=== PATIENT | male | born 1945 | race Caucasian/White ===

== ENCOUNTER 2020-01-05 06:28 | Outpatient (CLI) | payer MEDICARE, OTHER ==
[2020-01-05 18:10] LABS: #Basophils 0.1 thou/uL (0.0-0.2); #Eosinphils 0.1 thou/uL (0.0-0.7); #Lymphocytes 2.5 thou/uL (1.20-3.40); #Monocytes 0.5 thou/uL (0.11-0.59); #Neutrophils 3.2 thou/uL (1.40-6.50); %Eosinophils 2.3 % (0.0-10.0); %Lymphocytes 39.3 % (21.0-51.0); %Monocytes 7.3 % (0.0-10.0); %Neutrophils 50.2 % (42.0-75.0); Hemoglobin 13.4 g/dL (14.0-18.0); Mean Corpuscular HGB CONC 32.8 g/dL (32.0-36.0); Mean Corpuscular Hemoglobin 31.2 pg (27.0-31.0); Mean Corpuscular Volume 95.1 fL (78.0-98.0); Mean Platelet Volume 8.3 fL (7.4-10.4); Platelet Count 232 thou/uL (130-400); RBC Distribution Width 11.5 % (11.5-14.5); Red Blood Cell (RBC) Count 4.31 mill/uL (4.70-6.10); White Blood Cell (WBC) Count 6.3 thou/uL (4.8-10.8)
[2020-01-05 18:17] LABS: Prothrombin Time 13.4 sec (12.0-14.7)
[2020-01-05 18:28] LABS: Anion Gap 13 mmol/L (10-20); BUN (Urea Nitrogen) 19 mg/dL (8.4-25.7); Calc. Creatinine Clearance 0 mL/min (70-130); Calcium 9.6 mg/dL (7.8-10.44); Carbon Dioxide 22 mmol/L (23-31); Chloride 110 mmol/L (98-107); Estimated GFR-MDRD 77; Glucose 104 mg/dL (83-110); Potassium 3.7 mmol/L (3.5-5.1); Sodium 141 mmol/L (136-145)
[2020-01-05 18:32] LABS: Bacteria/HPF None Seen HPF (None Seen); Bilirubin Negative (Negative); Blood, Urine Negative (Negative); Clarity Clear (Clear); Glucose, Urine (Dipstick) Normal (Negative); Leukocyte Negative Leu/uL (Negative); Mucous/LPF Rare LPF (<2+); Nitrite Negative (Negative); Protein, Urine (Dipstick) Negative (Neg-Trace); Squamous Epithelial None Seen HPF (0-3); WBC/HPF 0-3 HPF (0-3)
[2020-01-06 16:30] LABS: SARS-CoV-2 MS2 Positive; SARS-CoV-2 N Gene Negative; SARS-CoV-2 S Gene Negative; SARS-CoV-2 orf1ab Negative
--- NOTE | 2020-01-07 12:20 | EKG ---
Test Reason : Blood Pressure : / mmHG Vent. Rate : 066 BPM Atrial Rate : 066 BPM P-R Int : 158 ms QRS Dur : 096 ms QT Int : 424 ms P-R-T Axes : 043 -29 036 degrees QTc Int : 444 ms Normal sinus rhythm Minimal voltage criteria for LVH, may be normal variant Borderline ECG When compared with ECG of 28-JAN-2016 12:11, T wave inversion no longer evident in Inferior leads Confirmed by MELODIE RODRIGUEZ, . SKaushik ([id number]) on 01/07/2020 12:19:54 PM Referred By: IERO Confirmed By:DR. Argenis SEWELL MD
== END 2020-01-05 06:29 | disposition home or self-care (01) ==
LOC: LABBT 06:28
PROVIDERS: ATTEND Orthopaedic Surgery
DX: Z01.818 Encounter for other preprocedural examination (principal); Z11.59 Encounter for screening for other viral diseases; M17.12 Unilateral primary osteoarthritis, left knee
CPT/HCPCS: 80048; 81001; 85025; 85610; 87081; 93005; U0003; 87635; 93010

== ENCOUNTER 2020-01-08 05:36 | Inpatient (IN) | payer MEDICARE, OTHER ==
[2020-01-05 15:57] VITALS: BMI 26.0
[2020-01-08] MEDS ORDERED: Tranexamic Acid 1,000 MG/10 ML VIAL ONE ×2 (06:28→09:39)
[2020-01-08] MEDS ORDERED: Sodium Chloride 0.9% 100 ML ONE (06:28)
[2020-01-08] MEDS ORDERED: Vancomycin 1 GM/200 ML BAG ONE (06:28)
[2020-01-08] MEDS ORDERED: Clindamycin/D5W 600 mg/50 ml Premix Bag ONE (06:28)
[2020-01-08] MEDS ORDERED: Fentanyl 100 MCG/2 ML VIAL ONE ×2 (06:32→09:14)
[2020-01-08] MEDS ORDERED: Lidocaine 1% (PF) 30 ML VIAL ONE (06:32)
[2020-01-08] MEDS ORDERED: Midazolam HCl 2 mg/2 ml Vial ONE (06:32)
[2020-01-08] MEDS ORDERED: Bupivacaine PF 0.5% 30 ML VIAL ONE (06:40)
[2020-01-08] MEDS ORDERED: Phenylephrine 10 MG/ML VIAL ONE (07:41)
[2020-01-08] MEDS ORDERED: Albumin 25% 100 ML ONE (07:52)
[2020-01-08] MEDS ORDERED: HYDROcodone/Acetaminophen 10/325 mg Tablet PO PRN (07:59)
[2020-01-08] MEDS ORDERED: Promethazine HCl 25 MG/ML VIAL IM PRN (07:59)
[2020-01-08] MEDS ORDERED: Zolpidem Tartrate 5 MG TAB PO PRN ×2 (07:59→09:32)
[2020-01-08] MEDS ORDERED: Ondansetron PF 4 MG/2 ML Vial IVP PRN ×2 (07:59→09:32)
[2020-01-08] MEDS ORDERED: Acetaminophen 325 MG TAB PO PRN ×2 (07:59→09:32)
[2020-01-08] MEDS ORDERED: Ropivacaine HCl/PF 250 ML in Premix Bag 1 BAG NERVE BLCK SCH (07:59)
[2020-01-08] MEDS ORDERED: Fentanyl 100 MCG/2 ML VIAL IV PRN (08:00)
[2020-01-08] MEDS ORDERED: diphenhydrAMINE 25 MG CAP PO PRN (09:32)
[2020-01-08] MEDS ORDERED: Albuterol Sulfate 2.5 mg/3 ml Neb NEB PRN (09:34)
[2020-01-08] MEDS ORDERED: Tranexamic Acid 1,000 MG in Sodium Chloride 0.9% 100 ML IVPB SCH (09:45)
[2020-01-08] MEDS ORDERED: EPHEDRINE 25 MG/5 ML SYRINGE ONE (10:38)
[2020-01-08] MEDS ORDERED: PHENYLEPHRINE-NS 100 MCG/ML 10 ML SYRINGE ONE (10:38)
[2020-01-08] MEDS ORDERED: Dexamethasone 20 MG/5 ML VIAL ONE (10:38)
[2020-01-08] MEDS ORDERED: Ropivacaine 0.5% HCl/PF (150 MG/30 ML VIAL) ONE (10:38)
[2020-01-08] MEDS ORDERED: PROPOFOL 200 MG/20 ML VIAL ONE (10:38)
[2020-01-08] MEDS ORDERED: Ketorolac Tromethamine 30 MG/ML VIAL ONE (10:38)
[2020-01-08] MEDS ORDERED: Ondansetron PF 4 MG/2 ML Vial ONE (10:38)
[2020-01-08] MEDS ORDERED: Ropivacaine 0.2% HCl/PF (40 MG/20 ML VIAL) ONE (10:38)
[2020-01-08] MEDS ORDERED: Ketorolac Tromethamine 30 MG/ML VIAL IVP SCH (12:00)
[2020-01-08] MEDS: Clindamycin/D5W 900 MG in Premix Bag 1 BAG IVPB SCH ×2 (12:46→18:31)
[2020-01-08] MEDS: Sodium Chloride 0.9% 1,000 ML IV SCH (12:46)
[2020-01-08] MEDS: Ketorolac Tromethamine 30 MG/ML VIAL IVP SCH ×2 (15:58→21:15)
[2020-01-08] MEDS ORDERED: Vancomycin HCl 1.5 GM in Sodium Chloride 0.9% 250 ML 300 ML IVPB SCH (20:00)
[2020-01-08] MEDS ORDERED: Vancomycin 1.5 GRAM/300 ML BAG 1.5 GM in Premix Bag 1 BAG IVPB SCH (20:00)
[2020-01-08] MEDS ORDERED: Dronedarone HCl 400 MG TAB PO SCH (21:00)
[2020-01-08] MEDS ORDERED: Gabapentin 300 MG CAP PO SCH (21:00)
[2020-01-08] MEDS: Aspirin 81 mg Enteric Coated Tablet PO SCH (21:15)
[2020-01-08] MEDS: Atenolol 25 MG TAB PO SCH (21:15)
[2020-01-08] MEDS: Montelukast Sodium 10 mg Tablet PO SCH (21:15)
[2020-01-08] MEDS: Amitriptyline HCl 25 MG TAB PO SCH (21:15)
[2020-01-08] MEDS: Finasteride 5 MG TAB PO SCH (21:15)
[2020-01-08] MEDS: Tamsulosin HCl 0.4 MG CAP PO SCH (21:15)
[2020-01-08] MEDS: Atorvastatin Calcium 10 MG TAB PO SCH (21:16)
[2020-01-08] MEDS: Zonisamide 100 MG CAP PO SCH (21:24)
[2020-01-09] MEDS: Ketorolac Tromethamine 30 MG/ML VIAL IVP SCH ×4 (02:48→20:28)
[2020-01-09] MEDS: HYDROcodone/Acetaminophen 10/325 mg Tablet PO PRN ×2 (04:31→10:39)
[2020-01-09 06:44] LABS: Hemoglobin 11.4 g/dL (14.0-18.0); Mean Corpuscular HGB CONC 32.5 g/dL (32.0-36.0); Mean Corpuscular Hemoglobin 31.2 pg (27.0-31.0); Mean Corpuscular Volume 95.9 fL (78.0-98.0); Mean Platelet Volume 7.8 fL (7.4-10.4); Platelet Count 192 thou/uL (130-400); RBC Distribution Width 11.4 % (11.5-14.5); Red Blood Cell (RBC) Count 3.66 mill/uL (4.70-6.10); White Blood Cell (WBC) Count 11.6 thou/uL (4.8-10.8)
--- NOTE | 2020-01-09 08:28 | PDOC.HOSPP ---
- Subjective Encounter Date: 01/09/20 Subjective: This is a 74-year-old male with history of hypertension, hyperlipidemia, asthma , osteoarthritis, and atrial fibrillation and on anticoagulation who presented to the hospital for total knee replacement. We have been consulted for medical management. Postoperative day 1. The patient is feeling better. He has been complaining of palpitations this morning and his heart rate was reportedly up to 125. - Objective Vital Signs & Weight: Vital Signs (12 hours) Temp Pulse Resp BP BP Pulse Ox 01/09/20 03:23 99.1 F 52 L 16 102/55 L 95 01/08/20 22:56 98.6 F 57 L 16 126/50 L 97 01/08/20 21:15 88 108/68 Weight Weight 159 lb I&O: 01/08/20 01/09/20 01/10/20 06:59 06:59 06:59 Intake Total 360 Balance 360 Result Diagrams: 01/09/20 05:56 Hospitalist ROS - Medication Medications: Active Medications Generic Name Dose Route Start Last Admin Trade Name Freq PRN Reason Stop Dose Admin Hydrocodone Bitart/Acetaminophen 1 tab 01/08/20 07:59 01/09/20 04:31 [place] 10/325 PO 1 tab Q4H PRN Administration Pain (1-3) Amitriptyline HCl 25 mg 01/08/20 21:00 01/08/20 21:15 Elavil PO 25 mg HS DANILO Administration Aspirin 81 mg 01/08/20 21:00 01/08/20 21:15 Ecotrin PO 81 mg BID DANILO Administration Atenolol 25 mg 01/08/20 21:00 01/08/20 21:15 Tenormin PO 25 mg HS DANILO Administration Atorvastatin Calcium 10 mg 01/08/20 21:00 01/08/20 21:16 Lipitor PO 10 mg HS DANILO Administration Dronedarone 400 mg 01/08/20 21:00 01/08/20 21:15 Multaq PO 400 mg HS DANILO Administration Finasteride 5 mg 01/08/20 21:00 01/08/20 21:15 Proscar PO 5 mg HS DANILO Administration Sodium Chloride 1,000 mls @ 100 mls/hr 01/08/20 09:45 01/08/20 12:46 Normal Saline 0.9% IV 1,000 mls .Q10H DANILO Administration Ketorolac Tromethamine 15 mg 01/08/20 15:00 01/09/20 02:48 Toradol IVP 01/10/20 09:01 15 mg 0300,0900,1500,2100 DANILO Administration Montelukast Sodium 10 mg 01/08/20 21:00 01/08/20 21:15 Singulair PO 10 mg HS DANILO Administration Sodium Chloride 10 ml 01/08/20 09:00 01/08/20 21:16 Flush - Normal Saline IVF 10 ml Q12HR DANILO Administration Tamsulosin HCl 0.4 mg 01/08/20 21:00 01/08/20 21:15 Flomax PO 0.4 mg BID DANILO Administration Zonisamide 100 mg 01/08/20 21:00 01/08/20 21:24 Zonisamide PO 100 mg BID DANILO Administration - Exam General Appearance: awake alert ENT: normocephalic atraumatic Heart: irregular Heart - other findings: tachycardia Extremities: no cyanosis, no clubbing Neurological: cranial nerve grossly intact, no focal deficits Hosp A/P (1) Afib Code(s): I48.91 - UNSPECIFIED ATRIAL FIBRILLATION Status: Acute (2) Knee joint replacement status Code(s): Z96.659 - PRESENCE OF UNSPECIFIED ARTIFICIAL KNEE JOINT Status: Acute (3) Asthma Code(s): J45.909 - UNSPECIFIED ASTHMA, UNCOMPLICATED Status: Chronic (4) Dyslipidemia Code(s): E78.5 - HYPERLIPIDEMIA, UNSPECIFIED Status: Chronic (5) HTN (hypertension) Code(s): I10 - ESSENTIAL (PRIMARY) HYPERTENSION Status: Chronic - Plan The patient's pain is controlled. Atrial fibrillation with RVR this morning. Will restart his Multitak 400 mg twice a day and continue his nocturnal atenolol. We will restart Eliquis today. Continue Protonix for peptic ulcer disease prophylaxis. Ipratropium bromide nebulized every 6 hours as needed for shortness of breath or wheezing. Continue PT and OT.
[2020-01-09] MEDS ORDERED: Ipratropium Bromide 2.5 ml Neb NEB PRN (08:42)
--- NOTE | 2020-01-09 08:52 | PRG ---
DATE OF SERVICE: 01/09/2020 SUBJECTIVE: Chase is a 74-year-old male, postop day 1 from left total knee arthroplasty. He has no complaints. He is quite comfortable and his knee is actually feeling better than his preoperative state. OBJECTIVE: VITAL SIGNS: Temperature 99.1, pulse 52, respiratory rate 16 and nonlabored, blood pressure 102/55. GENERAL: He is alert and oriented to person, place, time, situation, responsive, appropriate with examiner, quite happy with his postoperative results. EXTREMITIES: Incision is clean. No strikethrough. No erythema. He is neurovascularly intact in left lower extremity. LABORATORY DATA: Hemoglobin and hematocrit 11.4 and 35.1. IMPRESSION: A 74-year-old male postoperative day 1, left total knee arthroplasty doing exceptionally well. PLAN: Continue current care. Discharge to home tomorrow. Job ID: [id number]
[2020-01-09] MEDS: Aspirin 81 mg Enteric Coated Tablet PO SCH (08:57)
[2020-01-09] MEDS: Zonisamide 100 MG CAP PO SCH ×2 (08:57→20:29)
[2020-01-09] MEDS: Senokot S 8.6-50 MG TAB PO SCH ×2 (08:57→20:29)
[2020-01-09] MEDS: Multivitamin W/ Minerals 1 TAB PO SCH (09:00)
[2020-01-09] MEDS ORDERED: Apixaban 5 MG TAB PO SCH (09:00)
[2020-01-09] MEDS: Tamsulosin HCl 0.4 MG CAP PO SCH ×2 (09:00→20:29)
[2020-01-09] MEDS: Ferrous Gluconate 324 MG TAB PO SCH ×2 (09:00→17:06)
[2020-01-09] MEDS: Dronedarone HCl 400 MG TAB PO SCH ×2 (09:00→20:29)
[2020-01-09] MEDS ORDERED: HYDROcodone/Acetaminophen 10/325 mg Tablet PO SCH (11:15)
[2020-01-09] MEDS: Sodium Chloride 0.9% 1,000 ML IV SCH ×4 (11:42→23:11)
[2020-01-09] MEDS ORDERED: HYDROcodone/Acetaminophen 5/325 mg Tablet PO PRN ×2 (11:51→11:52)
[2020-01-09] MEDS: traMADol HCl 50 MG TAB PO PRN ×2 (13:12→20:30)
[2020-01-09] MEDS: Acetaminophen 325 MG TAB PO SCH ×2 (16:08→20:30)
[2020-01-09] MEDS: Apixaban 5 MG TAB PO SCH (17:05)
[2020-01-09] MEDS: HYDROcodone/Acetaminophen 5/325 mg Tablet PO SCH ×2 (17:34→23:09)
[2020-01-09] MEDS: Atorvastatin Calcium 10 MG TAB PO SCH (20:29)
[2020-01-09] MEDS: Atenolol 25 MG TAB PO SCH (20:29)
[2020-01-09] MEDS: Finasteride 5 MG TAB PO SCH (20:29)
[2020-01-09] MEDS: Amitriptyline HCl 25 MG TAB PO SCH (20:29)
[2020-01-09] MEDS: Montelukast Sodium 10 mg Tablet PO SCH (20:30)
[2020-01-10] MEDS: Ketorolac Tromethamine 30 MG/ML VIAL IVP SCH ×2 (04:24→08:37)
[2020-01-10] MEDS: Acetaminophen 325 MG TAB PO SCH ×2 (04:24→08:37)
[2020-01-10] MEDS: HYDROcodone/Acetaminophen 5/325 mg Tablet PO SCH ×2 (05:04→11:56)
[2020-01-10] MEDS: traMADol HCl 50 MG TAB PO PRN (05:40)
[2020-01-10 05:48] LABS: Mean Corpuscular HGB CONC 32.7 g/dL (32.0-36.0); Mean Corpuscular Hemoglobin 31.3 pg (27.0-31.0); Mean Corpuscular Volume 95.8 fL (78.0-98.0); Mean Platelet Volume 7.8 fL (7.4-10.4); Platelet Count 213 thou/uL (130-400); RBC Distribution Width 11.6 % (11.5-14.5); Red Blood Cell (RBC) Count 4.17 mill/uL (4.70-6.10)
[2020-01-10] MEDS: Dronedarone HCl 400 MG TAB PO SCH ×2 (08:35→20:22)
[2020-01-10] MEDS: Apixaban 5 MG TAB PO SCH ×2 (08:36→16:52)
[2020-01-10] MEDS: Multivitamin W/ Minerals 1 TAB PO SCH (08:36)
[2020-01-10] MEDS: Senokot S 8.6-50 MG TAB PO SCH ×2 (08:36→20:23)
[2020-01-10] MEDS: Ferrous Gluconate 324 MG TAB PO SCH ×2 (08:36→16:52)
[2020-01-10] MEDS: Tamsulosin HCl 0.4 MG CAP PO SCH ×2 (08:36→20:22)
[2020-01-10] MEDS: Zonisamide 100 MG CAP PO SCH ×2 (08:37→20:22)
[2020-01-10] MEDS: Sodium Chloride 0.9% 1,000 ML IV SCH (11:21)
[2020-01-10] MEDS ORDERED: ALPRAZolam 0.25 MG TAB PO SCH (13:00)
[2020-01-10] MEDS: Acetaminophen 500 MG TAB PO PRN (13:22)
--- NOTE | 2020-01-10 18:59 | PDOC.HOSPP ---
- Subjective Encounter Date: 01/10/20 Subjective: Follow-up palpitations. - Objective Vital Signs & Weight: Vital Signs (12 hours) Temp Pulse Resp BP Pulse Ox 01/10/20 15:15 98.5 F 80 18 107/59 L 98 01/10/20 12:33 97 01/10/20 11:13 98.4 F 148 H 14 114/80 95 01/10/20 07:27 98.2 F 141 H 17 120/77 95 Weight Admit Weight 159 lb Weight 159 lb I&O: 01/09/20 01/10/20 01/11/20 06:59 06:59 06:59 Intake Total 360 1670 Balance 360 1670 Result Diagrams: 01/10/20 05:34 Hospitalist ROS - Medication Medications: Active Medications Generic Name Dose Route Start Last Admin Trade Name Freq PRN Reason Stop Dose Admin Acetaminophen 1,000 mg 01/10/20 14:00 01/10/20 13:22 Tylenol PO 1,000 mg Q6H PRN Administration Moderate to Severe Pain (6-10) Amitriptyline HCl 25 mg 01/08/20 21:00 01/09/20 20:29 Elavil PO 25 mg HS DANILO Administration Apixaban 5 mg 01/09/20 17:00 01/10/20 16:52 Eliquis PO 5 mg 0900,1700 DANILO Administration Atenolol 25 mg 01/08/20 21:00 01/09/20 20:29 Tenormin PO 25 mg HS DANILO Administration Atorvastatin Calcium 10 mg 01/08/20 21:00 01/09/20 20:29 Lipitor PO 10 mg HS DANILO Administration Cholecalciferol 5,000 units 01/09/20 09:00 01/10/20 08:36 Vitamin D3 PO 5,000 units DAILY DANILO Administration Dronedarone 400 mg 01/09/20 09:00 01/10/20 08:35 Multaq PO 400 mg BID DANILO Administration Ferrous Gluconate 324 mg 01/09/20 08:00 01/10/20 16:52 Fergon PO 324 mg BID-WM DANILO Administration Finasteride 5 mg 01/08/20 21:00 01/09/20 20:29 Proscar PO 5 mg HS DANILO Administration Iron/Minerals/Multivitamins 1 tab 01/09/20 09:00 01/10/20 08:36 Theragran M PO 1 tab DAILY DANILO Administration Montelukast Sodium 10 mg 01/08/20 21:00 01/09/20 20:30 Singulair PO 10 mg HS DANILO Administration Pantoprazole Sodium 40 mg 01/09/20 09:00 01/10/20 08:36 Protonix PO 40 mg DAILY DANILO Administration Senna/Docusate Sodium 2 tab 01/09/20 09:00 01/10/20 08:36 Senokot S PO 2 tab BID DANILO Administration Sodium Chloride 10 ml 01/08/20 09:00 01/10/20 08:37 Flush - Normal Saline IVF 10 ml Q12HR DANILO Administration Tamsulosin HCl 0.4 mg 01/08/20 21:00 01/10/20 08:36 Flomax PO 0.4 mg BID DANILO Administration Zonisamide 100 mg 01/08/20 21:00 01/10/20 08:37 Zonisamide PO 100 mg BID DANILO Administration - Exam General Appearance: awake alert ENT: normocephalic atraumatic Neck: supple Respiratory: normal chest expansion, no tachypnea Extremities: no cyanosis Neurological: cranial nerve grossly intact, no focal deficits Hosp A/P (1) Afib Code(s): I48.91 - UNSPECIFIED ATRIAL FIBRILLATION Status: Acute (2) Knee joint replacement status Code(s): Z96.659 - PRESENCE OF UNSPECIFIED ARTIFICIAL KNEE JOINT Status: Acute (3) Asthma Code(s): J45.909 - UNSPECIFIED ASTHMA, UNCOMPLICATED Status: Chronic (4) Dyslipidemia Code(s): E78.5 - HYPERLIPIDEMIA, UNSPECIFIED Status: Chronic (5) HTN (hypertension) Code(s): I10 - ESSENTIAL (PRIMARY) HYPERTENSION Status: Chronic - Plan 01/08: The patient's pain is controlled. Atrial fibrillation with RVR this morning. Will restart his Multitak 400 mg twice a day and continue his nocturnal atenolol. We will restart Eliquis today. Continue Protonix for peptic ulcer disease prophylaxis. Ipratropium bromide nebulized every 6 hours as needed for shortness of breath or wheezing. Continue PT and OT. 01/09: The patient was tachycardic this morning. EKG revealed atrial flutter with rapid ventricular response. Transferred to telemetry. His safety and security manager was consulted. Continue Multitak, Eliquis and atenolol.
[2020-01-10] MEDS: Atorvastatin Calcium 10 MG TAB PO SCH (20:22)
[2020-01-10] MEDS: Atenolol 25 MG TAB PO SCH (20:22)
[2020-01-10] MEDS: Finasteride 5 MG TAB PO SCH (20:23)
[2020-01-10] MEDS: Amitriptyline HCl 25 MG TAB PO SCH (20:23)
[2020-01-10] MEDS: Montelukast Sodium 10 mg Tablet PO SCH (20:23)
--- NOTE | 2020-01-10 22:13 | EKG ---
Test Reason : Blood Pressure : / mmHG Vent. Rate : 145 BPM Atrial Rate : 290 BPM P-R Int : 000 ms QRS Dur : 100 ms QT Int : 260 ms P-R-T Axes : 114 -36 010 degrees QTc Int : 403 ms Atrial flutter with 2:1 A-V conduction Left axis deviation Pulmonary disease pattern Minimal voltage criteria for LVH, may be normal variant Inferior infarct , possibly acute T wave abnormality, consider anterior ischemia * ACUTE [place] * Consider right ventricular involvement in acute inferior infarct Abnormal ECG When compared with ECG of 05-JAN-2020 16:50, Significant changes have occurred Confirmed by El MUSA ([id number]) on 01/10/2020 10:13:18 PM Referred By: TOMMY Confirmed By:El MUSA
[2020-01-11] MEDS: Acetaminophen 500 MG TAB PO PRN ×3 (00:14→12:26)
--- NOTE | 2020-01-11 01:29 | CON ---
DATE OF CONSULTATION: HISTORY: Chase Elias is a 74-year-old white male, patient of Dr. Wilkinson. He had previously undergone evaluation with echocardiogram in December 2018, which revealed ejection fraction of 55% to 60% and [id number] mitral regurgitation, moderate aortic regurgitation, severe calcification of the aortic valve, mild aortic stenosis, and mild tricuspid regurgitation. He, also in November 2018, underwent cardiac PET, which was felt to probably be normal. He was seen again on September 14, 2019. He had been having problems with increased asthma and was using his rescue inhaler very frequently and was found by his primary doctor to be in atrial fibrillation. He was placed on Multaq 400 mg b.i.d. and atenolol was reduced to one-half of the 25 mg tablet daily. He had previously been placed on Eliquis 5 mg b.i.d. by his primary doctor. He returned for followup on September 22, 2019 and had returned to sinus rhythm. He states that since that time every few days, he would continue to have a rapid heartbeat at home, although it only last about 2 hours. This seem to be more prevalent if he would take higher dose narcotics for pain with his left knee. Two days ago, he underwent left total knee replacement. Apparently, he was not given Multaq. He then noticed that his heart was beating rapidly. An EKG showed atrial flutter with 2:1 block with a heart rate of 145 per minute. He was restarted on his Multaq yesterday morning at 9 and also Eliquis was restarted yesterday at 5 p.m. He has just been transferred to telemetry and has converted to sinus rhythm. PAST MEDICAL HISTORY: Recent diagnosis of atrial fibrillation, asthma, GERD, diabetes, hypercholesterolemia, hypertension, mild aortic stenosis, benign prostatic hypertrophy, osteoarthritis. MEDICATIONS: 1. Eliquis 5 mg b.i.d. 2. Multaq 400 mg b.i.d. 3. Albuterol p.r.n. 4. Amitriptyline 25 mg at bedtime. 5. Atenolol 25 mg at bedtime. 6. Celebrex 200 mg b.i.d. 7. Proscar 5 mg at bedtime. 8. Fish oil 1000 mg at bedtime. 9. Flovent b.i.d. 10. Omeprazole 20 mg daily. 11. Simvastatin 20 at bedtime. 12. Flomax 0.4 b.i.d. 13. Tramadol p.r.n. ALLERGIES: PENICILLIN. OPERATIONS: Appendectomy, tonsillectomy, left total knee replacement, nasal septal repair, lumbar fusion, bilateral rotator cuff repair. SOCIAL HISTORY: He does not smoke or drink. REVIEW OF SYSTEMS: 10-point review of systems is otherwise unremarkable. PHYSICAL EXAMINATION: VITAL SIGNS: 107/59, pulse of 80. HEENT: PERRL. NECK: Supple. CHEST: Clear. CARDIAC: S1 and S2 normal without any S3, S4, or murmurs. ABDOMEN: Normal bowel sounds without tenderness or organomegaly. EXTREMITIES: Revealed 1+ edema of the left leg. NEUROLOGIC: Grossly intact. SKIN: Warm and dry. LABORATORY DATA: EKG revealed atrial flutter with 2:1 block, left axis deviation, minimal voltage for LVH, nonspecific T-wave changes. Hemoglobin 13.0, hematocrit 39.9, white count 12,000, platelets 213,000. Sodium 141, potassium 3.7, chloride 110, carbon dioxide 22, BUN 19, creatinine 0.95. COVID negative. IMPRESSION: 1. Atrial flutter with heart rates in 140s, which is converted back to sinus rhythm. This may have been exacerbated by his postoperative state and it sounds as if he did not receive Multaq the day of surgery on January 07. Also he states, at home he has intermittent episodes of very rapid heartbeat which would last approximately 2 hours and he certainly may be having episodic atrial flutter at home. 2. Atrial fibrillation in August 2019 which converted as an outpatient with p.o. Multaq. 3. Moderate aortic insufficiency, mild aortic stenosis. 4. Hypertension. 5. Hyperlipidemia. PLAN: The patient's antiarrhythmic has been never resumed. At home, he continues to have breakthrough episodes lasting up to 2 hours. He certainly may be having episodic flutter at home. I will ask Electrophysiology to see him in consideration of an ablation of his flutter in the future. Dr. Wilkinson will assume his care in the morning. Job ID: [id number] [facility]
[2020-01-11 04:13] LABS: Mean Corpuscular HGB CONC 33.2 g/dL (32.0-36.0); Mean Corpuscular Hemoglobin 31.4 pg (27.0-31.0); Mean Corpuscular Volume 94.6 fL (78.0-98.0); Mean Platelet Volume 7.9 fL (7.4-10.4); Platelet Count 217 thou/uL (130-400); RBC Distribution Width 11.4 % (11.5-14.5); Red Blood Cell (RBC) Count 3.81 mill/uL (4.70-6.10); White Blood Cell (WBC) Count 9.3 thou/uL (4.8-10.8)
[2020-01-11] MEDS ORDERED: Furosemide 20 MG/2 ML VIAL SLOW IVP SCH (08:15)
[2020-01-11] MEDS ORDERED: Furosemide 40 MG/4 ML VIAL IVP SCH (08:15)
--- NOTE | 2020-01-11 08:35 | PRG ---
DATE OF SERVICE: 01/11/2020 SUBJECTIVE: Mr. Elias is doing better. He is converted back to sinus rhythm. He did have atrial flutter briefly. He has a previous history of paroxysmal atrial fibrillation. He has been on Eliquis at home. He was last seen in my office on 09/22/2019. OBJECTIVE: VITAL SIGNS: Blood pressure 129/58, pulse 69, temperature 98.5. GENERAL: Patient is a pleasant male, who is in no acute distress. The patient appears their stated age. NEUROLOGIC: The patient is alert and oriented x3 with no focal neurologic deficits. HEENT: Sclerae without icterus. Mouth has moist mucous membranes with normal pallor. NECK: No JVD. Carotid upstroke brisk. No bruits bilaterally. LUNGS: Clear to auscultation with unlabored respirations. BACK: No scoliosis or kyphosis. CARDIAC: Regular rate and rhythm with normal S1 and S2. No S3 or S4 noted. No significant rubs, murmurs, thrills, or gallops noted throughout the precordium. PMI is not displaced. There is no parasternal heave. ABDOMEN: Soft, nontender, nondistended. No peritoneal signs present. No hepatosplenomegaly. No abnormal striae. EXTREMITIES: 2+ femoral and 2+ dorsalis pedis pulses. No cyanosis, clubbing, or edema. SKIN: No gross abnormalities. PERTINENT LABORATORY DATA: Hemoglobin 12.0. Creatinine 0.98. IMPRESSION: 1. Atrial flutter/ . 2. Recent knee surgery. 3. Shortness of breath. RECOMMENDATIONS: I have asked Mr. Elias to get up and move around. He was restarted Eliquis yesterday. I would recommend repeating echo. He may benefit from one dose of low-dose IV Lasix. At this point, the patient does have paroxysmal atrial fibrillation/flutter. He may benefit from ablation. We will recommend this done as an outpatient. EP has been consulted. From my standpoint, as long as he remains in sinus rhythm and his shortness of breath improves, it would be okay for discharge to home with outpatient followup. Job ID: [id number]
[2020-01-11] MEDS: Ferrous Gluconate 324 MG TAB PO SCH (08:55)
[2020-01-11] MEDS: Multivitamin W/ Minerals 1 TAB PO SCH (08:55)
[2020-01-11] MEDS: Tamsulosin HCl 0.4 MG CAP PO SCH (08:55)
[2020-01-11] MEDS: Apixaban 5 MG TAB PO SCH (08:55)
[2020-01-11] MEDS: Zonisamide 100 MG CAP PO SCH (08:55)
[2020-01-11] MEDS: Dronedarone HCl 400 MG TAB PO SCH (08:56)
[2020-01-11] MEDS: Senokot S 8.6-50 MG TAB PO SCH (08:58)
[2020-01-11 11:47] VITALS: TEMP 97.8
[2020-01-11 12:06] VITALS: BP 99/62
--- NOTE | 2020-01-11 15:26 | PDOC.EP ---
- Subjective Date: 01/11/20 Time: 08:00 Interval History: Follow-up for arrhythmia management. patient has no cardiac concerns or complaints today and has remained in sinus rhythm since converting at 1:30 p.m. on 01/10/2020. he continues to recover from his recent knee replacement. - Review of Systems Constitutional: denies: chills, fever, malaise, weakness Respiratory: denies: cough, pleuritic pain, shortness of breath, wheezing Cardiology: denies: chest pain, edema, heart racing, light headedness, palpitations, passing out Gastrointestinal: denies: abdominal pain, constipation, diarrhea Musculoskeletal: reports: unstable gait, leg pain. denies: falls, neck pain - Objective Allergies/Adverse Reactions: Allergies Allergy/AdvReac Type Severity Reaction Status Date / Time Penicillins Allergy Verified 01/08/20 11:24 Current Medications Acetaminophen (Tylenol) 1,000 mg PO Q6H PRN PRN Reason: Moderate to Severe Pain (6-10) Last Admin: 01/11/20 12:26 Dose: 1,000 mg Albuterol Sulfate (Ventolin) 2.5 mg NEB Q6H PRN PRN Reason: SOB &/or Wheezing Amitriptyline HCl (Elavil) 25 mg PO [facility] Last Admin: 01/10/20 20:23 Dose: 25 mg Apixaban (Eliquis) 5 mg PO 0900,1700 [facility] Last Admin: 01/11/20 08:55 Dose: 5 mg Atenolol (Tenormin) 25 mg PO [facility] Last Admin: 01/10/20 20:22 Dose: 25 mg Atorvastatin Calcium (Lipitor) 10 mg PO [facility] Last Admin: 01/10/20 20:22 Dose: 10 mg Cholecalciferol (Vitamin D3) 5,000 units PO DAILY [facility] Last Admin: 01/11/20 08:54 Dose: 5,000 units Diphenhydramine HCl (Benadryl) 25 mg PO Q6H PRN PRN Reason: Itching Dronedarone (Multaq) 400 mg PO BID [facility] Last Admin: 01/11/20 08:56 Dose: 400 mg Fentanyl (Sublimaze) 50 mcg IV Q1H PRN PRN Reason: BREAKTHROUGH PAIN Ferrous Gluconate (Fergon) 324 mg PO BID-[facility] Last Admin: 01/11/20 08:55 Dose: 324 mg Finasteride (Proscar) 5 mg PO HS [facility] Last Admin: 01/10/20 20:23 Dose: 5 mg Ipratropium [place] (Atrovent) 2.5 ml NEB [id number] PRN PRN Reason: SOB &/or Wheezing Iron/Minerals/Multivitamins (Theragran M) 1 tab PO DAILY [facility] Last Admin: 01/11/20 08:55 Dose: 1 tab Montelukast Sodium (Singulair) 10 mg PO HS [facility] Last Admin: 01/10/20 20:23 Dose: 10 mg Ondansetron HCl (Zofran) 4 mg IVP Q6H PRN PRN Reason: Nausea/Vomiting Pantoprazole Sodium (Protonix) 40 mg PO DAILY [facility] Last Admin: 01/11/20 08:55 Dose: 40 mg Promethazine HCl (Phenergan) 12.5 mg IM Q4H PRN PRN Reason: Nausea Senna/Docusate Sodium (Senokot S) 2 tab PO BID [facility] Last Admin: 01/11/20 08:58 Dose: Not Given Sodium Chloride (Flush - Normal Saline) 10 ml IVF Q12HR [facility] Last Admin: 01/11/20 08:56 Dose: 10 ml Sodium Chloride (Flush - Normal Saline) 10 ml IVF PRN PRN PRN Reason: Saline Flush Tamsulosin HCl (Flomax) 0.4 mg PO BID [facility] Last Admin: 01/11/20 08:55 Dose: 0.4 mg Zolpidem Tartrate (Ambien) 5 mg PO HSPRN PRN PRN Reason: Insomnia Last Admin: 01/10/20 20:21 Dose: 5 mg Zonisamide (Zonisamide) 100 mg PO BID [facility] Last Admin: 01/11/20 08:55 Dose: 100 mg Vital Signs & Weight: Vital Signs Temp Pulse Pulse Pulse Resp BP BP 01/11/20 11:46 97.8 F 75 25 H 01/11/20 10:20 80 75 99/62 123/61 01/11/20 08:51 98.1 F 68 18 01/11/20 03:28 98.5 F 69 18 BP Pulse Ox 01/11/20 11:46 123/61 96 01/11/20 10:20 01/11/20 08:51 122/57 L 94 L 01/11/20 03:28 129/58 L 96 Admit Weight 159 lb Weight 159 lb I/O: I/O 01/10/20 01/11/20 01/12/20 06:59 06:59 06:59 Intake Total 1670 1560 Balance 1670 1560 - Quality Measures Condition: Atrial Fibrillation/Flutter (hx or current) CV meds: Eliquis: Yes - Physical Exam General: alert & oriented x3, appears well, no apparent distress, speech clear, affect appropriate HEENT: mucus membranes moist, normocephaly Neck: supple neck, midline trachea, no JVD/HJR, no masses, no bruit, no lymphadenopathy, no thromegaly Cardiology: regular rate and rhythm, no murmur, regular rate, regular rhythm, PMI nondisplaced Lungs: clear to auscultation, normal breath sounds, normal exam, no wheeze, rales, rhonchi, no wheezes, no rales, no rhonchi Neurology: cranial nerve 2-12 intact, grossly intact, motor function intact, sensory function intact, negative rhomberg, coordination normal, no lateralizing findings - Labs Result Diagrams: 01/11/20 03:50 - EKG Interpretation EKG Method: Telemetry EKG shows: Sinus rhythm - Assessment/Plan Assessment/Plan: 1. Atrial arrhythmias - OAC on eliquis - Symptomatic with associated SOB 2. R TKR Recent interruption in Multaq resulting in recurrent atrial arrhythmias. Typical atrial flutter seen and has a history of atrial fibrillation as well. Multaq has been resumed and patient converted back to sinus rhythm on 01/09 at 1 :30 p.m.. continue Multaq and anticoagulation as he recovers from his recent orthopedic procedure. Plan for ablation after he has recovered. will see him back in 6 weeks or sooner symptoms dictate
--- NOTE | 2020-01-11 20:59 | DIS ---
DATE OF ADMISSION: 01/10/2020 DATE OF DISCHARGE: 01/11/2020 DISCHARGE DIAGNOSES: 1. Postoperative atrial flutter with rapid ventricular response alternating with atrial fibrillation. 2. Status post knee replacement. 3. Asthma. 4. Dyslipidemia. 5. Hypertension. DISCHARGE MEDICATIONS: 1. Albuterol HFA two puffs inhaled q.6 hours as needed for shortness of breath or wheezing. 2. Amitriptyline 25 mg orally nightly. 3. Eliquis 5 mg orally twice daily. 4. Atenolol 25 mg orally nightly. 5. Vitamin D3 of 5000 units orally daily. 6. Multaq one tablet 500 mg orally twice daily. 7. Finasteride 5 mg orally nightly. 8. Montelukast 10 mg orally nightly. 9. Omeprazole 20 mg orally daily. 10. Simvastatin 20 mg orally nightly. 11. Tamsulosin 0.4 mg orally twice daily. 12. Zonisamide 100 mg orally twice daily. 13. Celebrex 200 mg orally twice daily. 14. Pramipexole 1 mg orally daily. 15. Tramadol 50 mg orally q.6 hours as needed for pain. 16. Fish oil one tablet 1000 mg orally nightly. HISTORY OF PRESENT ILLNESS AND HOSPITAL COURSE: This patient was initially admitted by Orthopedic Service for a knee replacement. We were consulted for medical management of his blood pressure and atrial fibrillation. Postoperatively, the patient developed atrial fibrillation with rapid ventricular response alternating with atrial flutter. This was likely exacerbated by his pain. The patient was started on Eliquis and his evening dose of atenolol. Cardiology Service consulted and they recommended continuing medical therapy with outpatient followup in 1 to 2 weeks for consideration of ablation. The patient converted spontaneously to sinus rhythm prior to discharge. Job ID: [id number] [facility]
--- NOTE | 2020-01-12 00:34 | CON ---
DATE OF CONSULTATION: 01/10/2020 HISTORY OF PRESENT ILLNESS: I am seeing Mr. 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 His problems are; 1. Paroxysmal atrial fibrillation, appears to be typical isthmus dependent, now in sinus rhythm, on continued Multaq therapy. 2. Prior history of atrial fibrillation, on Multaq and Eliquis therapy. 3. Status post left knee replacement on January 08, 2020, with transient interruption of the Multaq during this procedure and subsequent day. 4. [id number]-[id number] MR, normal LVEF by 2D echocardiogram. ALLERGIES: PENICILLINS. MEDICATIONS: At home included fish oil supplements, coconut oil, lactobacillus, cholecalciferol, albuterol, simvastatin, celecoxib, atenolol, finasteride, tamsulosin, half turmeric, omeprazole, dronedarone, Multaq 400 mg twice a day, apixaban 5 mg twice a day, zonisamide, montelukast, amitriptyline, pramipexole, fluticasone, and tramadol. SUBJECTIVE: Mr. Elias is here due to recurrent palpitations. He has been experiencing these sensations for last 2 days. He just underwent left total knee replacement on the and he was not given his usual Multaq medication. EKG in the ER showed typical appearing atrial flutter with 2:1 conduction to the ventricle. Ventricular rates were up to 145 beats per minute. Multaq was restarted yesterday morning and Eliquis was also yesterday. He was transferred to telemetry and he converted back to sinus rhythm while there. Since then, he is doing well. He denies angina, CHF, dizziness, or loss of consciousness. No PND or orthopnea noted. No fever, chills, or cough. No discomforts. No bleeding issues. Rest of 12-point review of system otherwise unremarkable. PAST MEDICAL HISTORY: As above. PAST SURGICAL HISTORY: Significant for appendectomy, tonsillectomy, left knee replacement, nasal septal repair, lumbar fusion, and bilateral rotator cuff repair. SOCIAL HISTORY: The patient denies smoking, EtOH, or drug abuse. He is a retired nurse. FAMILY HISTORY: Not contributory. OBJECTIVE DATA: VITAL SIGNS: Temperature 99.1 degrees Fahrenheit, heart rate 70, respiratory rate 16, and blood pressure 116/66. GENERAL: This is an alert and oriented man, in no apparent distress. NECK: Supple. Jugular veins not distended. CHEST: Coarse without crackles. HEART: Sounds are regular to rate and rhythm. No murmur or gallop. ABDOMEN: Benign. Bowel sounds positive. EXTREMITIES: Lower extremities without edema, clubbing, or cyanosis. Pulses are adequate. NEUROLOGIC: The patient is nonfocal. MUSCULOSKELETAL: Without joint swelling or deformity. SKIN: Without rash. DATABASE: EKG reviewed reveals initially atrial flutter, which appears to be typical isthmus dependent in morphology. There is 2:1 AV conduction seen and the subsequent EKG reveals sinus rhythm with rate of 66 beats per minute. The QRS 96 milliseconds and QTc [address]-T changes. LABORATORY DATA: White cell count is 9.3, hemoglobin 12.0, and platelet count is 217. Sodium on 15 was 141, potassium 3.7, BUN is 19, and creatinine 0.95. 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 He is in the past suppressed with Multaq. He has occasional recurrence, but more recently while holding Multaq, he had significant recurrence of atrial arrhythmia in this case, though it appears to be typical isthmus dependent atrial flutter. I discussed the mechanism of both atrial flutter and fibrillation with him. We discussed treatment options and I think this is the one chance that now resuming Multaq will at least hold him down for the immediate future in sinus rhythm. Should the atrial fibrillation or flutter frequently appear, additional AV sidney blocking agents could be considered like increasing atenolol or even adding digoxin. Monitor for bradyarrhythmias. Long-term, though he may benefit from left and right atrial ablation for both atrial fibrillation and flutter. For now, although in view of the recent knee surgery, I would have him recover fully before we consider that. Alternatively, adding amiodarone instead of Multaq could be considered in the interim. We discussed these options. For now, he is to continue Multaq and consider the ablation at a future visit. I will arrange that in 4 to 6 weeks. Thank you again for allowing me to participate in the care of this patient. Job ID: [id number]
--- NOTE | 2020-01-12 12:51 | OP ---
DATE OF PROCEDURE: 01/08/2020 PREOPERATIVE DIAGNOSIS: Left knee osteoarthrosis. POSTOPERATIVE DIAGNOSIS: Left knee osteoarthrosis. PROCEDURE PERFORMED: Left total knee replacement using Bloompop pinless navigation. MANAGER SHOP: Jareth Espinosa PA-C ANESTHESIA: The patient had general anesthetic as well as preoperative blocks. COMPLICATIONS: None. BLOOD LOSS: Minimal. IMPLANTS: To the left knee using Bloompop Triathlon total knee system and the implants of the left knee, we used a size 5 cruciate retaining femur. We used a size 5 tibial base plate. We used a 5 x 11 mm CS X3 poly for the tibial insert and we used an A32 X3 patella. DISPOSITION: He did go to recovery room in stable condition. INDICATIONS: This is a 74-year-old male presenting after years of pain for a left knee replacement. In the past, he has had a right knee replacement and done very well with this. PROCEDURE IN DETAIL: After all appropriate consent forms were explained and signed, the patient was taken back to the operating room and at this time was given general anesthetic. Once the level of anesthesia was appropriate, a well-padded tourniquet was placed on the left leg, and the leg was then prepped and draped in standard surgical fashion. The limb was exsanguinated and tourniquet taken up to 300 mmHg. Midline incision was made with a 10 blade down through the skin and subcutaneous tissue. Bovie electrocautery was used to coagulate any brisk venous bleeding. A new blade was used to make a medial parapatellar arthrotomy. Small subperiosteal release was performed medially and excess fat pad was removed. The knee was flexed up to gain access to the femur. The femur was navigated and distal femoral resection was made. Epicondylar access was used to align our sizing jig and this was pinned in place. We sized our femur to be a size 5 cruciate retaining femur. 4:1 cutting block was applied and pinned. Anterior and posterior chamfer cuts were then made. We navigated out our proximal tibia and made our proximal tibial resection. Spreaders were used to remove any posterior osteophytes off the back of the femur as well as remaining meniscal tissue. A long alignment oly was then used to achieve correct rotation of our tibial baseplate and a size 5 tibial base plate was chosen. This was pinned in place. We trialed the polyethylene and a 5 x 11 mm CS X3 polyethylene gave us full extension and good stability throughout range of motion. Two towel clips and a saw were used to cut our patella. Three lug nuts were drilled and A32 X3 patella was trialed which sat nicely in the trochlear groove. We then drilled our femur and punched our tibia. All components were removed. The knee was thoroughly irrigated and dried. Cement was mixed into the cement gun on the back table. Components were then placed. The knee was held out in full extension until the cement had dried. All excess bone cement was removed. Multiple #2 Vicryl stitches as well as a Quill were used to close our extensor mechanism. 0 Quill followed by a running Monoderm was then used to close the skin. Surgicel glue was then used on the skin. Once this had dried, soft tissue dressing was applied to the limb, tourniquet was let down, and the toes pinked up nicely. The patient was then awakened and taken to the recovery room in stable condition. All counts were correct at the end of the case. The patient did receive preoperative IV antibiotics. The patient was injected with Marcaine for postoperative pain relief. Job ID: [id number]
== END 2020-01-11 16:38 | disposition home or self-care (01) | DRG 470 ==
LOC: SDC 05:36 → SURG A 11:01 → 2NO 01-10 11:10 → SDC 01-10 12:38
PROVIDERS: ADMIT Orthopaedic Surgery; ATTEND Orthopaedic Surgery
PROC: 0SRD0J9 Replacement of Left Knee Joint with Synthetic Substitute, Cemented, Open Approach (ICD-10-PCS; principal; 2020-01-08)
DX: M17.12 Unilateral primary osteoarthritis, left knee (principal); I48.3 Typical atrial flutter; I10 Essential (primary) hypertension; E78.5 Hyperlipidemia, unspecified; I48.0 Paroxysmal atrial fibrillation; J45.909 Unspecified asthma, uncomplicated; E78.00 Pure hypercholesterolemia, unspecified; N40.0 Benign prostatic hyperplasia without lower urinary tract symptoms; Z88.0 Allergy status to penicillin; Z79.01 Long term (current) use of anticoagulants; Z79.899 Other long term (current) drug therapy; Z79.51 Long term (current) use of inhaled steroids; Z90.49 Acquired absence of other specified parts of digestive tract
CPT/HCPCS: 36415; 85027; 93005; 93010; 93306; C1713; C1776; J1100; J1885; J1940; J2001; J2250; J2370; J2405; J2704; J2795; J3010; J3370; J3490; P9047; S0020

== ENCOUNTER 2022-09-16 09:11 | Outpatient (CLI) | payer MEDICARE, OTHER ==
[2022-09-16 10:29] LABS: #Eosinphils 0.2 10x3/uL (0.0-0.5); #Monocytes 0.6 10x3/uL (0.0-1.1); #Neutrophils 4.8 10x3/uL (1.5-8.4); %Basophils 0.5 % (0.0-2.0); %Eosinophils 2.1 % (0.0-6.0); %Lymphocytes 28.7 % (18.0-47.0); %Monocytes 7.6 % (0.0-10.0); %Neutrophils 60.8 % (40.0-75.0); Hemoglobin 12.6 g/dL (13.5-17.5); Mean Corpuscular HGB CONC 34.3 g/dL (32.0-36.0); Mean Corpuscular Hemoglobin 32.6 pg (27.0-33.0); Mean Corpuscular Volume 94.8 fl (81.2-95.1); Mean Platelet Volume 9.6 fl (7.4-10.4); Platelet Count 252 10x3/uL (150-450); Red Blood Cell (RBC) Count 3.87 10x6/uL (4.32-5.72); White Blood Cell (WBC) Count 7.9 10x3/uL (3.5-10.5)
[2022-09-16 10:45] LABS: Anion Gap 12 mmol/L (10-20); BUN (Urea Nitrogen) 26 mg/dL (8.4-25.7); Calc. Creatinine Clearance 0 mL/min (70-130); Calcium 9.9 mg/dL (7.8-10.44); Carbon Dioxide 23 mmol/L (23-31); Chloride 109 mmol/L (98-107); Estimated GFR 75; Glucose 115 mg/dL (83-110); Potassium 3.8 mmol/L (3.5-5.1); Sodium 140 mmol/L (136-145)
== END 2022-09-16 09:12 | disposition home or self-care (01) ==
LOC: LABBT 09:11
PROVIDERS: ATTEND Orthopaedic Surgery
DX: Z01.818 Encounter for other preprocedural examination (principal); M25.511 Pain in right shoulder
CPT/HCPCS: 80048; 85025; 93005; 93010

== ENCOUNTER 2022-09-17 05:52 | Observation (INO) | payer MEDICARE, OTHER ==
[2022-09-17] MEDS ORDERED: Ropivacaine 0.2% HCl/PF 0 ML ONE (06:36)
[2022-09-17] MEDS ORDERED: Ropivacaine 0.5% HCl/PF (150 MG/30 ML VIAL) ONE (06:36)
[2022-09-17] MEDS ORDERED: CEFAZOLIN 2 GM VIAL ONE (06:38)
[2022-09-17] MEDS ORDERED: Tranexamic Acid 1,000 MG/10 ML VIAL ONE (06:38)
[2022-09-17] MEDS ORDERED: Vancomycin 1 GM/200 ML (FROZEN) BAG ONE (06:38)
[2022-09-17] MEDS ORDERED: Sodium Chloride 0.9% 100 ML ONE ×2 (06:38→06:42)
[2022-09-17] MEDS ORDERED: Lidocaine 1% MPF 2 ML VIAL ONE (06:39)
[2022-09-17] MEDS ORDERED: Midazolam HCl 2 mg/2 ml Vial ONE (07:09)
[2022-09-17] MEDS ORDERED: HYDROcodone/Acetaminophen 10/325 mg Tablet PO PRN ×3 (07:28→10:00)
[2022-09-17] MEDS ORDERED: Ipratropium/Albuterol 3 ML NEB NEB PRN (07:30)
[2022-09-17] MEDS ORDERED: Albuterol 200 PUFF (6.7GM INHALER) INH PRN (07:30)
[2022-09-17] MEDS ORDERED: PHENYLEPHRINE-NS 100 MCG/ML 10 ML SYRINGE ONE (07:51)
[2022-09-17] MEDS ORDERED: Ondansetron PF 4 MG/2 ML Vial ONE (07:51)
[2022-09-17] MEDS ORDERED: Glycopyrrolate 0.2 MG/ML 5 ML SYRINGE ONE (07:51)
[2022-09-17] MEDS ORDERED: ePHEDrine 50 MG/ML VIAL ONE (07:51)
[2022-09-17] MEDS ORDERED: Lidocaine 1% PF 5 ML VIAL ONE (07:51)
[2022-09-17] MEDS ORDERED: PROPOFOL 200 MG/20 ML VIAL ONE (07:51)
[2022-09-17] MEDS ORDERED: Rocuronium Bromide 10 MG/ML (10ML VIAL) ONE (07:51)
[2022-09-17 08:06] LABS: SARS-CoV-2 NAA Rapid Test Not Detected (NotDetected)
[2022-09-17] MEDS ORDERED: Non-Formulary Item 1 EACH (Finasteride [Finasteride] 1 MG Tablet) PO SCH (09:00)
[2022-09-17] MEDS ORDERED: [UNRECOGNIZED DRUG - OTHER] INH SCH (09:00)
[2022-09-17] MEDS ORDERED: Losartan 25 MG TAB PO SCH (09:00)
[2022-09-17] MEDS ORDERED: SALMETEROL INH SCH (09:00)
[2022-09-17] MEDS ORDERED: Hydrochlorothiazide 25 MG TAB PO SCH (09:00)
[2022-09-17] MEDS ORDERED: Non-Formulary Item 1 EACH (Losartan/Hydrochlorothiazide [Losartan-Hctz 100-12.5 Mg Tab] 1 PO SCH (09:00)
[2022-09-17] MEDS ORDERED: LACTOBACILLUS COMBINATION NO 4 PO SCH (09:00)
[2022-09-17] MEDS ORDERED: FLUTICASONE INH SCH (09:00)
[2022-09-17] MEDS ORDERED: FINASTERIDE 1 MG PO SCH (09:00)
[2022-09-17] MEDS ORDERED: SUGAMMADEX SODIUM 200 MG/2 ML VIAL ONE (09:20)
[2022-09-17] MEDS ORDERED: Fentanyl 100 MCG/2 ML VIAL ONE (09:44)
[2022-09-17] MEDS ORDERED: Ondansetron HCl/PF 4 MG/2 ML Vial IVP PRN (09:47)
[2022-09-17] MEDS ORDERED: Promethazine HCl 25 MG/ML VIAL IM PRN ×2 (09:47→10:00)
[2022-09-17] MEDS ORDERED: Fentanyl 100 MCG/2 ML VIAL IV PRN (09:54)
[2022-09-17] MEDS ORDERED: Ropivacaine 0.2% 550 ML 550 ML NERVE BLCK SCH (10:00)
[2022-09-17] MEDS ORDERED: traMADol HCl 50 MG TAB PO PRN ×2 (10:00)
[2022-09-17] MEDS ORDERED: Ondansetron PF 4 MG/2 ML Vial IVP PRN (10:00)
[2022-09-17] MEDS ORDERED: Zolpidem Tartrate 5 MG TAB PO PRN (10:00)
[2022-09-17] MEDS: Aspirin 81 mg Enteric Coated Tablet PO SCH (13:41)
[2022-09-17] MEDS: Amoxicillin/Potassium Clav 875 MG TAB PO SCH ×2 (13:41→20:07)
[2022-09-17] MEDS: Floranex 1 GM Packet PO SCH (13:41)
[2022-09-17] MEDS: Ketorolac Tromethamine 30 MG/ML VIAL IVP SCH ×3 (13:42→23:00)
[2022-09-17] MEDS: Multivitamin W/ Minerals 1 TAB PO SCH (13:42)
[2022-09-17] MEDS: Flecainide 50 MG TAB PO SCH ×2 (13:42→20:07)
[2022-09-17] MEDS ORDERED: CEFAZOLIN 2 GM in Sodium Chloride 0.9% 100 ML IVPB SCH (14:00)
[2022-09-17] MEDS ORDERED: Lidocaine Viscous Sol 2% 15 ml UD Cup SSW PRN (16:38)
[2022-09-17] MEDS: CEFAZOLIN 2 GM in Sodium Chloride 0.9% 100 ML IVPB SCH ×2 (16:45→22:29)
[2022-09-17 16:49] VITALS: BMI 26.6
[2022-09-17] MEDS: Ipratropium/Albuterol 3 ML NEB NEB SCH ×2 (18:37→22:27)
[2022-09-17] MEDS: Mometasone 200 MCG/Formoterol 5 MCG 120 PUFF INHALER INH SCH (18:38)
[2022-09-17] MEDS: Budesonide 0.5 MG/2 ML NEB NEB SCH (18:38)
[2022-09-17] MEDS ORDERED: Pramipexole Di-HCl 1 MG TAB PO SCH (21:00)
[2022-09-17] MEDS ORDERED: Zonisamide 100 MG CAP PO SCH (21:00)
[2022-09-17] MEDS ORDERED: Simvastatin 40 MG TAB PO SCH (21:00)
[2022-09-17] MEDS ORDERED: Pramipexole Di-HCl 0.25 MG TAB PO SCH (21:00)
[2022-09-17] MEDS ORDERED: Non-Formulary Item 1 EACH (Zonisamide [Zonisamide] 50 MG Capsule) PO SCH (21:00)
[2022-09-17] MEDS ORDERED: Montelukast Sodium 10 mg Tablet PO SCH (21:00)
[2022-09-17] MEDS ORDERED: Amitriptyline HCl 25 MG TAB PO SCH ×2 (21:00)
[2022-09-17] MEDS ORDERED: Atorvastatin Calcium 20 MG TAB PO SCH (21:00)
[2022-09-18] MEDS: HYDROcodone/Acetaminophen 10/325 mg Tablet PO PRN ×2 (00:56→08:37)
[2022-09-18] MEDS: Ipratropium/Albuterol 3 ML NEB NEB SCH ×2 (02:39→07:47)
[2022-09-18] MEDS: Ketorolac Tromethamine 30 MG/ML VIAL IVP SCH (05:43)
[2022-09-18] MEDS: Mometasone 200 MCG/Formoterol 5 MCG 120 PUFF INHALER INH SCH (07:47)
[2022-09-18] MEDS: Budesonide 0.5 MG/2 ML NEB NEB SCH (07:47)
[2022-09-18] MEDS: Aspirin 81 mg Enteric Coated Tablet PO SCH (08:36)
[2022-09-18] MEDS: Floranex 1 GM Packet PO SCH (08:37)
[2022-09-18] MEDS: Multivitamin W/ Minerals 1 TAB PO SCH (08:37)
[2022-09-18] MEDS: Amoxicillin/Potassium Clav 875 MG TAB PO SCH (08:37)
[2022-09-18] MEDS: Flecainide 50 MG TAB PO SCH (08:40)
[2022-09-18 08:46] VITALS: BP 105/64; TEMP 98.5
[2022-09-18] MEDS ORDERED: Losartan 25 MG TAB PO SCH (09:00)
== END 2022-09-18 11:01 | disposition home or self-care (01) ==
LOC: SDC 05:52 → SURG A 07:28
PROVIDERS: ADMIT Orthopaedic Surgery; ATTEND Orthopaedic Surgery
PROC: 0RRJ00Z Replacement of Right Shoulder Joint with Reverse Ball and Socket Synthetic Substitute, Open Approach (ICD-10-PCS; principal; 2022-09-17)
DX: G89.29 Other chronic pain (principal); M25.511 Pain in right shoulder; M19.011 Primary osteoarthritis, right shoulder; N40.0 Benign prostatic hyperplasia without lower urinary tract symptoms; K21.9 Gastro-esophageal reflux disease without esophagitis; E78.5 Hyperlipidemia, unspecified; I48.0 Paroxysmal atrial fibrillation; I10 Essential (primary) hypertension; E11.9 Type 2 diabetes mellitus without complications; G47.33 Obstructive sleep apnea (adult) (pediatric); I45.10 Unspecified right bundle-branch block; R13.10 Dysphagia, unspecified; Z79.2 Long term (current) use of antibiotics; Z79.82 Long term (current) use of aspirin; Z79.899 Other long term (current) drug therapy; Z88.0 Allergy status to penicillin; Z96.653 Presence of artificial knee joint, bilateral; Z98.1 Arthrodesis status; Z95.818 Presence of other cardiac implants and grafts; Z20.822 Contact with and (suspected) exposure to COVID-19
CPT/HCPCS: 23472; 94640 ×5; 97110 ×2; 97116 ×2; 97535; A4306; C1713 ×6; C1776 ×3; J3370; U0002; J1885; J2250; J2405; J2704; J2795; J3010; J3490; J7620; J7626

== ENCOUNTER 2023-07-20 12:38 | Outpatient (CLI) | payer MEDICARE, OTHER | END 2023-07-20 12:39 | disposition home or self-care (01) | LOC: BICMRI 12:38 | PROVIDERS: ATTEND Orthopaedic Surgery | DX: M71.30 Other bursal cyst, unspecified site (principal); M19.012 Primary osteoarthritis, left shoulder; M75.102 Unspecified rotator cuff tear or rupture of left shoulder, not specified as traumatic; M25.412 Effusion, left shoulder | CPT/HCPCS: 82565 ==

== ENCOUNTER 2023-08-09 11:06 | Outpatient (CLI) | payer MEDICARE, OTHER ==
[2023-08-09 11:41] LABS: #Eosinphils 0.1 10x3/uL (0.0-0.5); #Monocytes 0.8 10x3/uL (0.0-1.1); #Neutrophils 8.7 10x3/uL (1.5-8.4); %Basophils 0.3 % (0.0-2.0); %Eosinophils 0.9 % (0.0-6.0); %Lymphocytes 17.4 % (18.0-47.0); %Monocytes 6.5 % (0.0-10.0); %Neutrophils 74.6 % (40.0-75.0); Hematocrit 32.4 % (38.8-50.0); Hemoglobin 11.1 g/dL (13.5-17.5); Mean Corpuscular HGB CONC 34.3 g/dL (32.0-36.0); Mean Corpuscular Hemoglobin 31.8 pg (27.0-33.0); Mean Corpuscular Volume 92.8 fl (81.2-95.1); Mean Platelet Volume 9.8 fl (7.4-10.4); Platelet Count 221 10x3/uL (150-450); RBC Distribution Width 12.7 % (11.5-14.5); Red Blood Cell (RBC) Count 3.49 10x6/uL (4.32-5.72); White Blood Cell (WBC) Count 11.7 10x3/uL (3.5-10.5)
[2023-08-09 12:01] LABS: Anion Gap 14 mmol/L (10-20); BUN (Urea Nitrogen) 24 mg/dL (8.4-25.7); Calc. Creatinine Clearance 0 mL/min (70-130); Calcium 9.6 mg/dL (7.8-10.44); Carbon Dioxide 26 mmol/L (23-31); Chloride 100 mmol/L (98-107); Estimated GFR 53; Glucose 99 mg/dL (83-110); Potassium 3.9 mmol/L (3.5-5.1); Sodium 136 mmol/L (136-145)
== END 2023-08-09 11:07 | disposition home or self-care (01) ==
LOC: LABBT 11:06
PROVIDERS: ATTEND Orthopaedic Surgery
DX: Z01.818 Encounter for other preprocedural examination (principal); M19.012 Primary osteoarthritis, left shoulder
CPT/HCPCS: 80048; 85025; 93005; 93010

== ENCOUNTER 2023-08-12 05:37 | Observation (INO) | payer MEDICARE, OTHER ==
[2023-08-09 11:24] VITALS: BMI 23.7
[2023-08-12] MEDS ORDERED: Tranexamic Acid 1,000 MG/10 ML VIAL ONE (06:17)
[2023-08-12] MEDS ORDERED: Sodium Chloride 0.9% 100 ML ONE ×2 (06:17→07:01)
[2023-08-12] MEDS ORDERED: Vancomycin 1 GM/200 ML (FROZEN) BAG ONE (06:17)
[2023-08-12] MEDS ORDERED: fentaNYL 50 mcg/mL 1 mL Vial ONE ×2 (06:23→09:39)
[2023-08-12] MEDS ORDERED: Ropivacaine 0.5% HCl/PF (150 MG/30 ML VIAL) ONE (06:24)
[2023-08-12] MEDS ORDERED: Midazolam HCl 2 mg/2 ml Vial ONE (06:24)
[2023-08-12] MEDS ORDERED: Ropivacaine 0.2% HCl/PF 20 ML ONE (06:24)
[2023-08-12] MEDS ORDERED: Lidocaine 1% (PF) 30 ML VIAL ONE (06:45)
[2023-08-12] MEDS ORDERED: CEFAZOLIN 2 GM VIAL ONE (07:01)
[2023-08-12] MEDS ORDERED: HYDROcodone/Acetaminophen 10/325 mg Tablet PO PRN ×4 (07:05→08:15)
[2023-08-12] MEDS ORDERED: Albuterol 200 PUFF (6.7GM INHALER) INH PRN (07:06)
[2023-08-12] MEDS ORDERED: Ipratropium/Albuterol 3 ML NEB NEB PRN (07:06)
[2023-08-12] MEDS ORDERED: fentaNYL PF 100 MCG/2 ML SYRINGE ONE (07:19)
[2023-08-12] MEDS ORDERED: PROPOFOL 20 ML ONE (07:19)
[2023-08-12] MEDS ORDERED: Rocuronium Bromide 10 MG/ML (10ML VIAL) ONE (07:23)
[2023-08-12] MEDS ORDERED: Ketorolac Tromethamine 30 MG/ML VIAL ONE (07:23)
[2023-08-12] MEDS ORDERED: Ondansetron PF 4 MG/2 ML Vial ONE (07:23)
[2023-08-12] MEDS ORDERED: Dexamethasone 20 MG/5 ML VIAL ONE (07:23)
[2023-08-12] MEDS ORDERED: ePHEDrine Sulfate 50 MG/10 ML VIAL ONE (07:59)
[2023-08-12] MEDS ORDERED: Furosemide 20 MG TAB PO SCH (08:00)
[2023-08-12] MEDS ORDERED: fentaNYL 50 mcg/mL 1 mL Vial SLOW IVP PRN (08:08)
[2023-08-12] MEDS ORDERED: Glycopyrrolate 0.2 MG/ML 5 ML SYRINGE ONE (08:10)
[2023-08-12] MEDS ORDERED: Albumin 5% 500 ML ONE (08:10)
[2023-08-12] MEDS ORDERED: Zolpidem Tartrate 5 MG TAB PO PRN (08:15)
[2023-08-12] MEDS ORDERED: Ondansetron PF 4 MG/2 ML Vial IVP PRN (08:15)
[2023-08-12] MEDS ORDERED: Ropivacaine 0.2% 550 ML 550 ML NERVE BLCK SCH (08:15)
[2023-08-12] MEDS ORDERED: traMADol HCl 50 MG TAB PO PRN ×2 (08:15)
[2023-08-12] MEDS ORDERED: Ketorolac Tromethamine 30 MG/ML VIAL IVP PRN (08:15)
[2023-08-12] MEDS ORDERED: Promethazine HCl 25 MG/ML VIAL IM PRN (08:15)
[2023-08-12] MEDS ORDERED: PHENYLEPHRINE-NS 100 MCG/ML 10 ML SYRINGE ONE (08:32)
[2023-08-12] MEDS ORDERED: NEOSTIGMINE 3 MG/3 ML SYR 3 MG/3 ML SYRINGE ONE (08:44)
[2023-08-12] MEDS: Hydrochlorothiazide 25 MG TAB PO SCH (12:54)
[2023-08-12] MEDS: Lactated Ringer's 1,000 ML IV SCH (12:54)
[2023-08-12] MEDS: Losartan 25 MG TAB PO SCH (12:54)
[2023-08-12] MEDS: Floranex 1 GM Packet PO SCH (12:54)
[2023-08-12] MEDS: Cholecalciferol 1,000 UNITS (25 MCG) TAB PO SCH (12:54)
[2023-08-12] MEDS: Zonisamide 25 MG CAP PO SCH ×2 (12:55→21:24)
[2023-08-12] MEDS: Multivitamin W/ Minerals 1 TAB PO SCH (12:55)
[2023-08-12] MEDS: Finasteride 5 MG TAB PO SCH (13:42)
[2023-08-12] MEDS: Flecainide 50 MG TAB PO SCH ×2 (13:43→21:23)
[2023-08-12] MEDS: Ipratropium/Albuterol 3 ML NEB NEB SCH ×3 (14:47→22:16)
[2023-08-12] MEDS: CEFAZOLIN 2 GM in Sodium Chloride 0.9% 100 ML IVPB SCH ×2 (15:05→22:12)
[2023-08-12] MEDS: Mometasone 100 MCG HFA INHALER (RT USE) INH SCH (18:44)
[2023-08-12] MEDS ORDERED: Atorvastatin Calcium 20 MG TAB PO SCH (21:00)
[2023-08-12] MEDS ORDERED: Montelukast Sodium 10 mg Tablet PO SCH (21:00)
[2023-08-12] MEDS ORDERED: Amitriptyline HCl 25 MG TAB PO SCH (21:00)
[2023-08-12] MEDS ORDERED: Pramipexole Di-HCl 0.25 MG TAB PO SCH (21:00)
[2023-08-13] MEDS: Lactated Ringer's 1,000 ML IV SCH (01:18)
[2023-08-13] MEDS: Ipratropium/Albuterol 3 ML NEB NEB SCH (06:31)
[2023-08-13] MEDS: Mometasone 100 MCG HFA INHALER (RT USE) INH SCH (06:35)
[2023-08-13 08:58] VITALS: BP 107/68; TEMP 99.2
[2023-08-13] MEDS: Finasteride 5 MG TAB PO SCH (09:31)
[2023-08-13] MEDS: Cholecalciferol 1,000 UNITS (25 MCG) TAB PO SCH (09:32)
[2023-08-13] MEDS: Floranex 1 GM Packet PO SCH (09:32)
[2023-08-13] MEDS: Hydrochlorothiazide 25 MG TAB PO SCH (09:33)
[2023-08-13] MEDS: Multivitamin W/ Minerals 1 TAB PO SCH (09:34)
[2023-08-13] MEDS: Losartan 25 MG TAB PO SCH (09:34)
[2023-08-13] MEDS: Flecainide 50 MG TAB PO SCH (09:34)
[2023-08-13] MEDS: Zonisamide 25 MG CAP PO SCH (09:36)
[2023-08-15] MEDS ORDERED: CeleCOXIB 100 MG CAP PO SCH (09:00)
== END 2023-08-13 12:05 | disposition home or self-care (01) ==
LOC: SDC 05:37 → SJJU 09:33
PROVIDERS: ADMIT Orthopaedic Surgery; ATTEND Orthopaedic Surgery
PROC: 0RRK0JZ Replacement of Left Shoulder Joint with Synthetic Substitute, Open Approach (ICD-10-PCS; principal; 2023-08-12)
DX: M12.812 Other specific arthropathies, not elsewhere classified, left shoulder (principal); N40.0 Benign prostatic hyperplasia without lower urinary tract symptoms; K21.9 Gastro-esophageal reflux disease without esophagitis; E78.5 Hyperlipidemia, unspecified; J45.909 Unspecified asthma, uncomplicated; I10 Essential (primary) hypertension; Z96.653 Presence of artificial knee joint, bilateral; Z98.1 Arthrodesis status; Z90.49 Acquired absence of other specified parts of digestive tract; Z98.890 Other specified postprocedural states; Z88.0 Allergy status to penicillin; Z79.899 Other long term (current) drug therapy
CPT/HCPCS: 23472; 94640 ×4; 94664; 97116; 97535; A4306; C1713 ×7; C1776 ×3; J3010; J3370; P9045; J1100; J1885; J2001; J2250; J2405; J2704; J2795; J3490; J7620

== ENCOUNTER 2023-10-04 09:56 | Inpatient (IN) | payer MEDICARE, OTHER ==
[2023-10-04] MEDS ORDERED: KETAMINE 100 MG/ML (5ML VIAL) ONE (16:24)
[2023-10-04 18:04] LABS: #Eosinphils 0.3 thou/uL (0.0-0.7); #Monocytes 0.6 thou/uL (0.11-0.59); #Neutrophils 4.2 thou/uL (1.40-6.50); %Basophils 0.6 % (0.0-1.0); %Eosinophils 4.5 % (0.0-10.0); %Lymphocytes 28.7 % (21.0-51.0); %Monocytes 7.7 % (0.0-10.0); %Neutrophils 58.2 % (42.0-75.0); Hematocrit 33.1 % (42.0-52.0); Hemoglobin 10.8 g/dL (14.0-18.0); Mean Corpuscular HGB CONC 32.6 g/dL (32.0-36.0); Mean Corpuscular Hemoglobin 30.8 pg (27.0-31.0); Mean Corpuscular Volume 94.3 fl (78.0-98.0); Mean Platelet Volume 9.7 fL (7.4-10.4); Platelet Count 250 10x3/uL (130-400); RBC Distribution Width 13.7 % (11.5-14.5); Red Blood Cell (RBC) Count 3.51 mill/uL (4.70-6.10); White Blood Cell (WBC) Count 7.3 10x3/uL (4.8-10.8)
[2023-10-04 18:39] LABS: ALT (SGPT) 14 U/L (8-55); AST (SGOT) 17 U/L (5-34); Albumin 3.9 g/dL (3.4-4.8); Alkaline Phosphatase 93 U/L (40-110); Anion Gap 13 mmol/L (10-20); BUN (Urea Nitrogen) 26 mg/dL (8.4-25.7); Bilirubin, Total 0.6 mg/dL (0.2-1.2); Calc. Creatinine Clearance 0 mL/min (70-130); Carbon Dioxide 24 mmol/L (23-31); Chloride 105 mmol/L (98-107); Estimated GFR 54; Glucose 98 mg/dL (83-110); INR-International Normal Ratio 1.1; Potassium 4.2 mmol/L (3.5-5.1); Protein, Total 6.9 g/dL (5.8-8.1); Prothrombin Time 14.2 sec (12.0-14.7); Sodium 138 mmol/L (136-145)
[2023-10-04 18:40] LABS: PTT 31.6 sec (22.9-36.1)
[2023-10-04 20:08] VITALS: BMI 23.3
[2023-10-05] MEDS ORDERED: traMADol HCl 50 MG TAB PO PRN ×2 (00:32→14:00)
[2023-10-05] MEDS ORDERED: Albuterol 200 PUFF (6.7GM INHALER) INH PRN (00:37)
[2023-10-05] MEDS: Morphine 2 MG/ML VIAL SLOW IVP PRN (00:54)
[2023-10-05] MEDS: Flecainide 50 MG TAB PO SCH ×2 (00:55→07:41)
[2023-10-05] MEDS: Sodium Chloride 0.9% 1,000 ML IV SCH (01:01)
[2023-10-05] MEDS: Ipratropium/Albuterol 3 ML NEB NEB SCH (01:46)
[2023-10-05] MEDS: HYDROcodone/Acetaminophen 5/325 mg Tablet PO PRN (03:05)
[2023-10-05] MEDS: traMADol HCl 50 MG TAB PO PRN ×2 (06:25→23:29)
[2023-10-05] MEDS ORDERED: CEFAZOLIN 2 GM in Sodium Chloride 0.9% 100 ML IVPB SCH (07:30)
[2023-10-05] MEDS ORDERED: Tranexamic Acid 1,000 MG in Sodium Chloride 0.9% 250 ML 250 ML IVPB SCH (07:30)
[2023-10-05] MEDS: Mometasone 100 MCG HFA INHALER (RT USE) INH SCH (07:38)
[2023-10-05] MEDS: Cholecalciferol 1,000 UNITS (25 MCG) TAB PO SCH (07:39)
[2023-10-05] MEDS: Saccharomyces boulardii 250 MG CAP PO SCH (07:40)
[2023-10-05] MEDS: Multivitamin W/ Minerals 1 TAB PO SCH (07:40)
[2023-10-05] MEDS: Fish Oil 1,000 MG CAP PO SCH (07:40)
[2023-10-05] MEDS: Ferrous Sulfate 325 MG TAB PO SCH (07:40)
[2023-10-05] MEDS: Losartan 25 MG TAB PO SCH (07:40)
[2023-10-05] MEDS: Hydrochlorothiazide 25 MG TAB PO SCH (07:41)
[2023-10-05] MEDS: CeleCOXIB 100 MG CAP PO SCH (07:41)
[2023-10-05] MEDS: Zonisamide 25 MG CAP PO SCH (07:41)
[2023-10-05] MEDS ORDERED: Vancomycin (BATCH) 1.5 GM in Premix 1 BAG IVPB SCH (08:00)
[2023-10-05] MEDS ORDERED: Tranexamic Acid 1,000 MG/10 ML VIAL ONE (09:18)
[2023-10-05] MEDS ORDERED: Sodium Chloride 0.9% 100 ML ONE (09:18)
[2023-10-05] MEDS: Vancomycin (BATCH) 1.5 GM/300 ML BAG ONE (09:42)
[2023-10-05] MEDS ORDERED: fentaNYL 50 mcg/mL 1 mL Vial ONE ×2 (11:10→14:21)
[2023-10-05] MEDS ORDERED: Midazolam HCl 2 mg/2 ml Vial ONE (11:11)
[2023-10-05] MEDS ORDERED: Ropivacaine 0.5% HCl/PF (150 MG/30 ML VIAL) ONE (11:11)
[2023-10-05] MEDS ORDERED: fentaNYL PF 100 MCG/2 ML SYRINGE ONE (11:59)
[2023-10-05] MEDS ORDERED: PROPOFOL 20 ML ONE (11:59)
[2023-10-05] MEDS ORDERED: Rocuronium Bromide 10 MG/ML (10ML VIAL) ONE (12:00)
[2023-10-05] MEDS ORDERED: Lidocaine 1% PF 5 ML VIAL ONE (12:00)
[2023-10-05] MEDS ORDERED: HYDROcodone/Acetaminophen 7.5/325 mg Tablet PO PRN ×2 (12:06)
[2023-10-05] MEDS ORDERED: ePHEDrine Sulfate 50 MG/10 ML VIAL ONE (12:49)
[2023-10-05] MEDS ORDERED: PHENYLEPHRINE-NS 100 MCG/ML 10 ML SYRINGE ONE (13:27)
[2023-10-05] MEDS ORDERED: Ondansetron PF 4 MG/2 ML Vial ONE (13:32)
[2023-10-05] MEDS ORDERED: Ondansetron HCl/PF 4 MG/2 ML Vial IVP PRN (13:34)
[2023-10-05] MEDS ORDERED: Promethazine HCl 25 MG/ML VIAL IM PRN ×2 (13:34→14:00)
[2023-10-05] MEDS ORDERED: HYDROmorphone 2 MG/ML VIAL SLOW IVP PRN (13:34)
[2023-10-05] MEDS ORDERED: SUGAMMADEX SODIUM 200 MG/2 ML VIAL ONE (13:36)
[2023-10-05] MEDS ORDERED: fentaNYL 50 mcg/mL 1 mL Vial SLOW IVP PRN (13:51)
[2023-10-05] MEDS ORDERED: Ondansetron PF 4 MG/2 ML Vial IVP PRN (14:00)
[2023-10-05] MEDS ORDERED: HYDROcodone/Acetaminophen 10/325 mg Tablet PO PRN (14:00)
[2023-10-05] MEDS ORDERED: Zolpidem Tartrate 5 MG TAB PO PRN (14:00)
[2023-10-05] MEDS ORDERED: Ropivacaine 0.2% 550 ML 550 ML NERVE BLCK SCH (14:00)
[2023-10-05] MEDS: Lactated Ringer's 1,000 ML IV SCH (14:20)
[2023-10-05] MEDS: TURMERIC ROOT EXTRACT PO SCH (17:41)
[2023-10-05] MEDS: COCONUT OIL PO SCH (17:41)
[2023-10-05] MEDS: Ketorolac Tromethamine 30 MG (1 mL) VIAL IVP SCH (17:42)
[2023-10-05] MEDS: CEFAZOLIN 2 GM in Sodium Chloride 0.9% 100 ML IVPB SCH (17:43)
[2023-10-05] MEDS: Montelukast Sodium 10 mg Tablet PO SCH (20:28)
[2023-10-05] MEDS: Pramipexole Di-HCl 0.25 MG TAB PO SCH (20:28)
[2023-10-05] MEDS: Amitriptyline HCl 25 MG TAB PO SCH (20:28)
[2023-10-05] MEDS: Atorvastatin Calcium 20 MG TAB PO SCH (20:28)
[2023-10-05] MEDS: Vancomycin (BATCH) 1.5 GM in Premix 1 BAG IVPB SCH (20:32)
[2023-10-06] MEDS: Furosemide 20 MG TAB PO SCH (07:43)
[2023-10-07] MEDS: HYDROcodone/Acetaminophen 10/325 mg Tablet PO PRN (00:49)
[2023-10-07] MEDS: Multivit, Therapeutic 1 TAB PO SCH (08:31)
[2023-10-07] MEDS: Sodium Chloride 0.9% 500 ML IVPB SCH (12:58)
[2023-10-07 13:24] VITALS: TEMP 98.6
[2023-10-07 13:48] VITALS: BP 136/73
[2023-10-07] MEDS ORDERED: CeleCOXIB 100 MG CAP PO SCH (21:00)
== END 2023-10-07 14:31 | disposition home or self-care (01) | DRG 516 ==
LOC: ERS 09:56 → ERHOLD 17:37 → T4-A 22:45 → OBSVTOIN 10-06 09:23
PROVIDERS: ADMIT Orthopaedic Surgery; ATTEND Orthopaedic Surgery
PROC: 0RW Upper Joints, Revision (ICD-10-PCS; principal; 2023-10-06)
PROC: 3E033XZ Introduction of Vasopressor into Peripheral Vein, Percutaneous Approach (ICD-10-PCS; 2023-10-06)
DX: S43.005A Unspecified dislocation of left shoulder joint, initial encounter (principal); T84.028A Dislocation of other internal joint prosthesis, initial encounter; K44.9 Diaphragmatic hernia without obstruction or gangrene; K21.9 Gastro-esophageal reflux disease without esophagitis; E78.5 Hyperlipidemia, unspecified; I10 Essential (primary) hypertension; E11.40 Type 2 diabetes mellitus with diabetic neuropathy, unspecified; R29.6 Repeated falls; Z90.49 Acquired absence of other specified parts of digestive tract; Z98.890 Other specified postprocedural states; Z96.611 Presence of right artificial shoulder joint; Z96.612 Presence of left artificial shoulder joint; Z90.89 Acquired absence of other organs; Z98.1 Arthrodesis status
CPT/HCPCS: 36415; 36416; 80053; 85025; 85610; 85730; 86850; 86900; 86901; 94640; 96375; 96376; 99152; A4306; C1713; G0378; J1885; J2250; J2272; J2405; J2704; J2795; J3010; J3370; J3490; J7030; J7050; J7120; J7620